=== PATIENT | female | born 2000 | race African-American/Black ===

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

== ENCOUNTER 2022-02-17 17:15 | Emergency (ER) | payer OTHER, SELFPAY ==
--- NOTE | 2022-02-17 18:21 | PC.NURSE ---
no answer for triage x2
== END 2022-02-17 18:33 | disposition left against medical advice (07) ==
PROVIDERS: PCP Pediatrics Adolescent Medicine
DX: Z53.21 Procedure and treatment not carried out due to patient leaving prior to being seen by health care provider (principal)
CPT/HCPCS: 99199

== ENCOUNTER 2023-05-24 20:29 | Emergency (ER) | payer SELFPAY ==
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
--- NOTE | ~2023-05-24 | CT_ITS ---
Non-contrast Head CT History: Syncope COMPARISON: 12/20/2020 Technique: Axial non-contrast imaging of the brain was performed. Dose reduction technique was used on this scan by utilizing automated exposure control and iterative reconstruction technique. The dose -length product (DLP) was 605.33 mGy-cm. Findings: There is no evidence of intracranial hemorrhage, mass lesion, or acute infarct. Brain par enchyma appears normal. The ventricles and subarachnoid spaces are normal in size. The calvarium ap pears normal. The visualized paranasal sinuses and mastoid air cells are clear. Impression: No significant abnormality seen. Reviewed, dictated and finalized at [facility]. [employer] SCHEDULE CLERK Impression: No significant abnormality seen.
[2023-05-24 20:50] VITALS: BP 110/62; PULSE 104; RESP 20; TEMP 36.6; O2SAT 97
[2023-05-24 22:56] VITALS: BP 102/64; PULSE 94; RESP 18; TEMP 36.2; O2SAT 100
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
[2023-05-24] MEDS: KETOROLAC 30 MG/ML VIAL (*BKC) IM (23:17)
--- NOTE | 2023-05-24 23:36 | PC.NURSE ---
this rn assumed care of patient. this rn took patient report from shannan avina.
--- NOTE | 2023-05-24 23:40 | PC.NURSE ---
this rn asked pt if she could provide a urine sample, to allow pt to obtain a ct scan. pt declined being able to provide a urine sample at this time. this rn educated pt on importance of needing urine sample. pt verbalized understanding. ct made aware.
--- NOTE | 2023-05-25 00:07 | PC.NURSE ---
this rn asked pt x2 to provide a urine sample. pt refused to provide urine sample. this rn educated pt on importance of providing urine sample for t scan. pt verbalized understanding. ARMANDO gamboa made aware.
--- NOTE | 2023-05-25 02:51 | PC.NURSE ---
pt used call light to notify this rn, that she would like to leave. Pt stated I cannot wait here all night for a scan, I have things to do today . This rn notified ARMANDO Infante about pt wanting to leave.
[2023-05-25 03:03] VITALS: BP 98/61; PULSE 78; RESP 20; O2SAT 100
== END 2023-05-25 03:00 | disposition home or self-care (01) ==
PROVIDERS: Emergency Provider Physician Assistant
DX: R51.9 Headache, unspecified (principal); S29.9XXA Unspecified injury of thorax, initial encounter; V43.52XA Car driver injured in collision with other type car in traffic accident, initial encounter
CPT/HCPCS: 70450; 71250; 81025; 96372; 99284; J1885

== ENCOUNTER 2023-10-23 22:22 | Emergency (ER) | payer SELFPAY ==
[2023-10-23 22:25] VITALS: BP 155/99; PULSE 81; RESP 18; TEMP 37.2; O2SAT 98
[2023-10-23 22:40] VITALS: BP 103/55; PULSE 60; RESP 16; O2SAT 98
--- NOTE | 2023-10-23 22:48 | ED.BACK ---
HPI - Back Pain/Injury General Chief Complaint: Back Pain/Injury Stated Complaint: flank pain and migraines Time Seen by Provider: 10/23/23 22:42 Source: patient Mode of arrival: ambulatory Limitations: no limitations History of Present Illness HPI Narrative: Marva is a 22-year-old female patient presenting to the ER today with complaints of bilateral flank pain, nausea, vomiting, body aches, chills, feeling feverish, and runny nose. She reports this has been going on for 4-5 days. States symptoms are gradually getting worse. noticed a little bit of blood in her vomit today. History of scoliosis. Denies any urinary symptoms. Patient has a Nexplanon in place and does not have regular periods Related Data Allergies Allergy/AdvReac Type Severity Reaction Status Date / Time iodine Allergy Rash Verified 10/23/23 22:24 Review of Systems Review of Systems: Pertinent positives per HPI. Patient denies any fever, chills, rash, headache, visual changes, dizziness, cough, runny nose, sore throat, shortness of breath, chest pain, palpitations, diarrhea, constipation, abdominal pain. PMFSH Past Medical History Medical History (Updated 10/24/23 @ 00:13 by Gautam Graves APRN) No active medical problems Surgical History Surgical History No pertinent past surgical history Family History Family History Mother No pertinent past medical history Social History Social History Smoking status: Never smoker Substance use: never Gender identity (if verbalized by the patient): Female Sexual Orientation (if Verbalized by the Patient): Straight or Heterosexual Spiritual care concerns: No Comments At the time of my signature, I reviewed and agree with the nursing past medical, surgical, social, and family history. There is no relevant family history pertinent to the patient complaint. Exam Narrative: General: Well-developed, well nourished, in no apparent distress Head: Normocephalic, atraumatic Eyes: Pupils equally round and reactive to light bilaterally, EOM intact, sclera and conjunctive clear, no discharge, lids normal Ears: TMs intact and clear, ear canals clear, no drainage, grossly hearing normal. Nose: Nares patent, no discharge, no inflammation, no sinus tenderness. Mouth: Oropharynx without lesions or masses, good dentition, MMM. Neck: Supple, trachea midline, no enlargement of anterior or posterior cervical nodes, no thyroid masses or goiter palpable. Cardio: Regular rate and rhythm, s1 and s2 normal, no murmur appreciated. Resp: Clear to auscultation bilaterally anteriorly and posteriorly, no rhonchi, rales, wheezing or rubs Abdomen: Soft, pliable, bowel sounds present in all quadrants, non-tender to palpation, no organomegly, positive bilateral CVAT tenderness. Course Course Emergency Course: Portions of this record may have been created with voice recognition software. Vital Signs Vital signs: Vital Signs Temperature 37.2 C 10/23/23 22:25 Pulse Rate 81 10/23/23 22:25 Respiratory Rate 18 10/23/23 22:25 Blood Pressure 155/99 H 10/23/23 22:25 Pulse Oximetry 98 10/23/23 22:25 Oxygen Delivery Room Air 10/23/23 22:25 Temperature 37.2 C 10/23/23 22:25 Pulse Rate 60 10/23/23 22:40 Respiratory Rate 16 10/23/23 22:40 Blood Pressure 103/55 L 10/23/23 22:40 Pulse Oximetry 98 10/23/23 22:40 Oxygen Delivery Room Air 10/23/23 22:25 Vital signs reviewed MDM - Back Pain/Injury MDM Narrative Medical decision making narrative: At the time of visit patient is resting comfortably on the exam table. Patient appears to be nontoxic. Labs: CBC is unremarkable, chemistry shows sodium 136, potassium 3.5, chloride 102, BUN of 6, creatinine 0.7, GFR is 95, GFR is greater than 60, g
[2023-10-23] MEDS: SODIUM CHLORIDE 0.9% IV 1,000 ML 999 ML IV CONT (23:20)
[2023-10-23 23:23] LABS: BEDSIDEPREGUCG Negative
[2023-10-23 23:27] LABS: Basophils Percent Auto 0.3 % (0.2-1.2); Eosinophils Absolute Auto 0.2 K/mm3 (0-0.3); Eosinophils Percent Auto 2.5 % (0-4.4); Hematocrit 41.4 % (37.0-47.0); Hemoglobin 13.6 g/dL (12.0-15.0); Immature Granulocyte Absolute 0.01 K/mm3 (0.00-0.031); Immature Granulocyte Percent A 0.1 % (0-0.5); Lymphocytes Absolute Auto 2.52 K/mm3 (0.9-3.2); Lymphocytes Percent Auto 36.8 % (18.3-44.2); Mean Corpuscular HGB Conc 32.9 g/dl (32-36); Mean Corpuscular Volume 85.4 fl (80-100); Mean Platelet Volume 8.6 fl (7.4-10.4); Monocytes Absolute Auto 0.4 K/mm3 (0.1-0.6); Monocytes Percent Auto 6.3 % (2.6-8.5); Neutrophils Absolute Auto 3.7 K/mm3 (1.3-6.7); Platelet Count Result 248 k/mm3 (150-375); Red Blood Count 4.85 M/mm3 (4.2-5.4); Red Cell Distribution Width 12.1 % (11.5-14.5); White Blood Count 6.8 K/mm3 (4.5-10.0)
[2023-10-23 23:32] LABS: Appearance Urine Cloudy (Clear); Bacteria Urine 4+ /hpf; Bilirubin Urine Negative (Negative); Blood Urine Negative (Negative); Color Urine Yellow (Yellow); Glucose Urine UA Negative (Negative); Ketones Urine Trace mg/dL (Negative); Leukocyte Esterase Ur 1+ LEU/UL (Negative); Nitrate Urine Negative (Negative); Non Pathogenic Casts 0-2; Protein Urine Negative (Negative); RBC Urine 0-2 /hpf (0-2); Specific Grav Ur 1.024 (1.001-1.035); Squamous Epithelial Cell Urine Many /hpf (Few); pH Urine 5.5 (5.0-9.0)
[2023-10-23 23:33] LABS: Add Urine Microscopic? YES
[2023-10-23 23:37] LABS: Albumin Level 3.9 g/dL (3.5-5.1); Alkaline Phosphatase 65 U/L (38-126); Anion Gap 8 mmol/L (4-12); Aspartate Amino Transferase 18 U/L (14-36); Bilirubin,Total 0.3 mg/dL (0.2-1.3); Blood Urea Nitrogen 6 mg/dL (7-17); Calcium 8.7 mg/dL (8.4-10.2); Carbon Dioxide 26 mmol/L (22-30); Chloride 102 mmol/L (98-107); Estimated CRCL calculation 95 ml/min; Estimated Glomerular Filt Rate > 60; Glucose 85 mg/dL (65-110); Lipase 35 U/L (23-300); Potassium 3.5 mmol/L (3.4-5.0); Sodium 136 mmol/L (137-145)
[2023-10-24 00:06] LABS: Influenza A QL RT-PCR Negative (Negative); Influenza B QL RT-PCR Negative (Negative); RSV RNA, RT-PCR Negative (Negative); SARS-CoV-2 RNA PCR Negative (Negative)
[2023-10-24 00:16] LABS: Alanine Aminotransferase < 6 U/L (6-35)
[2023-10-24] MEDS: SULFAMETHOXAZOLE/TRIMETHOPRIM 800/160 MG DS TABLET 1 TAB PO (00:21)
== END 2023-10-24 00:27 | disposition home or self-care (01) ==
PROVIDERS: Emergency Provider Nurse Practitioner Family
DX: N30.00 Acute cystitis without hematuria (principal); K29.00 Acute gastritis without bleeding; Z20.822 Contact with and (suspected) exposure to COVID-19
CPT/HCPCS: 36415; 80053; 81001; 81025; 83690; 85025; 87086; 87637; 96360; 99283; A9270; J7030

== ENCOUNTER 2024-07-01 19:29 | Emergency (ER) | payer OTHER, SELFPAY ==
--- OUTSIDE RECORDS SUMMARY | 2024-07-01 19:31 | XMS_ITS | Referral Summary ---
Author Organization [facility] o[facility] Address [address] [place] [address] Care Team Providers Care Data Processor Name Role Phone Joanne Perez MD Primary Care Provider [phone] Encounters Date Type Department Care Team Description 05/20/2024 8:30 AM BATTERY SERVICE TECHNICIAN Office Visit [facility]ient Care at [address] [address] Brittni Lujan PA Rash (Primary Dx) from Last 3 Months Allergies No known active allergies Medications predniSONE (DELTASONE) 10 mg tablet Take 5 tabs (50mg) daily for 2 days, then take 4 tabs (40mg) daily for 2 days. Continue to decrease by 1 tab (10mg) every 2 days until gone. 30 tablet 05/20/2024 Active Active Problems Problem Noted Date Diagnosed Date Scoliosis 05/13/2016 Social History Tobacco Use Types Packs/Day Years Used Date Smoking Tobacco: Never Assessed Comments Unknown Sex and Gender Information Value Date Recorded Sex Assigned at Not on file Legal Sex Female 2:48 AM BATTERY SERVICE TECHNICIAN Gender Identity Not on file Sexual Orientation Not on file Last Filed Vital Signs Vital Sign Reading Time Taken Comments Blood Pressure 116/72 05/20/2024 8:46 AM BATTERY SERVICE TECHNICIAN Pulse 70 05/20/2024 8:46 AM BATTERY SERVICE TECHNICIAN Temperature 37.2 C (98.9 F) 05/20/2024 8:46 AM BATTERY SERVICE TECHNICIAN Respiratory Rate 20 05/20/2024 8:46 AM BATTERY SERVICE TECHNICIAN Oxygen Saturation 98% 05/20/2024 8:46 AM BATTERY SERVICE TECHNICIAN Inhaled Oxygen Concentration - - Weight 52.3 kg (115 lb 6.4 oz) 05/20/2024 8:46 A M BATTERY SERVICE TECHNICIAN Height - - Body Mass Index - - Plan of Treatment Not on file Insurance [facility] CMR Care Teams Data Processor Relationship Specialty Start Date End Date Joanne Perez MD PCP - General Pediatrics 06/07/20
--- OUTSIDE RECORDS SUMMARY | 2024-07-01 19:31 | XMS_ITS | Clinical Summary ---
Author Organization [facility] ospital Address [address] [place] [address] Care Team Providers Care National Van Truck Driver Name Role Phone Joanne Perez MD Primary Care Provider [phone] Allergies No known active allergies Medications predniSONE (DELTASONE) 10 mg tablet Take 5 tabs (50mg) daily for 2 days, then take 4 tabs (40mg) daily for 2 days. Continue to decrease by 1 tab (10mg) every 2 days until gone. 30 tablet 05/20/2024 Active Active Problems Problem Noted Date Diagnosed Date Scoliosis 05/13/2016 Encounters Date Type Department Care Team Description 05/20/2024 8:30 AM DIGITAL HARDWARE DESIGN ENGINEER Office Visit [facility] Medical [facility] Convenient Care at [address] [address] Brittni Lujan PA Rash (Primary Dx) from Last 3 Months Family History Medical History Relation Name Comments [place] legs Maternal Grandfather Helena - Relation: Grandfather (Added by TW Conv) Diabetes Other Family history of diabetes mellitus - Relation: Grandmother (Added by TW Conv) Scoliosis Other Family history of scoliosis - Relation: Aunt (Added by TW Conv) Relation Name Status Comments Maternal Grandfather Other Social History Tobacco Use Types Packs/Day Years Used Date Smoking Tobacco: Never Assessed Comments Unknown Sex and Gender Information Value Date Recorded Sex Assigned at Not on file Legal Sex Female 2:48 AM DIGITAL HARDWARE DESIGN ENGINEER Gender Identity Not on file Sexual Orientation Not on file Obstetrics History Last Filed Vital Signs Vital Sign Reading Time Taken Comments Blood Pressure 116/72 05/20/2024 8:46 AM DIGITAL HARDWARE DESIGN ENGINEER Pulse 70 05/20/2024 8:46 AM DIGITAL HARDWARE DESIGN ENGINEER Temperature 37.2 C (98.9 F) 05/20/2024 8:46 AM DIGITAL HARDWARE DESIGN ENGINEER Respiratory Rate 20 05/20/2024 8:46 AM DIGITAL HARDWARE DESIGN ENGINEER Oxygen Saturation 98% 05/20/2024 8:46 AM DIGITAL HARDWARE DESIGN ENGINEER Inhaled Oxygen Concentration - - Weight 52.3 kg (115 lb 6.4 oz) 05/20/2024 8:46 A M DIGITAL HARDWARE DESIGN ENGINEER Height - - Body Mass Index - - Plan of Treatment Health Maintenance Due Date Last Done Comments Cervical Cancer Screening 2002 Depression Screening 2002 Hepatitis C Screening 2002 Regular Well Visit/Exam 18-64 2020 Meningococcal B Vaccine (2 o f 2 - Trumenba SCDM 2-dose series) 10/26/2021 04/28/2021, 03/15/2020, 01/25/2019 Covid-19 Vaccine (2023-2 5 season) 2023 07/17/2020, 06/26/2020 Influenza Vaccine (#1) 2023 12/22/2019, 2011 DTaP/Tdap/Td Vaccine (7 - Td or Tdap) 11/11/2024 11/11/2014, 09/21/2007, 12/31/2003, Additional history exists Hepatitis B Screening Completed 06/26/2003 , 01/31/2003, 2002 Pneumococcal vaccine <65 Completed 005, 06/26/2003, 04/15/2003, Additional history exists Varicella Vaccines Completed 09/21/2007, 12/31/2003 HPV Vaccines Completed 11/11/2014, 11/26, 01/25/2012 Meningococcal Vaccine Completed 01/25/2019, 015 Insurance [facility] Care Teams National Van Truck Driver Relationship Specialty Start Date End Date Joanne Perez MD PCP - General Pediatrics 06/07/20
--- OUTSIDE RECORDS SUMMARY | 2024-07-01 19:31 | XMS_ITS | Clinical Summary ---
Author Organization [facility] Address [address] [place] [address] Care Team Providers Care [place] Worker Supervisor Name Role Phone Unavailable Primary Care Provider Unavailabl e Source Comments [facility],non-owned Affiliates and Associated Physician Practices is amultiple site organization consisting of ambulatory clinics and hospital sitesin [place], [place], [place] and [place]. This disclosure is being madepursuant to the Care Everywhere program and may not contain all information available regarding this patient. Last updated 17.[facility] Social History Tobacco Use Types Packs/Day Years Used Date Smoking Tobacco: Never Assessed Sex and Gender Information Value Date Recorded Sex Assigned at Not on file Gender Identity Not on file Sexual Orientation Not on file Plan of Treatment Health Maintenance Due Date Last Done Comments PAP SMEAR 2002 HIV SCREENING 2017 HPV VACCINE (1 - 3-dose series) 2017 CHLAMYDIA/GONORRHEA SCREENING 2018 MENINGOCOCCAL (Group B) VACC INE SHARED DECISION-MAKING (1 of 2 - Standard) 2018 HEPATITIS C SCREENING 10/25/2020 DTAP/TDAP/TD VACCINES (1 - Tdap) 2021 HEPATITIS B VACCINE (1 of 3 - 19+ 3-dose series) 2021 COVID-19 VACCINE (1 - 2023-2 5 season) 2023 DEPRESSION SCREENING 03/28/2024 INFLUENZA VACCINE (Season Ended) 2024 ZOSTER VACCINE (1 of 2) 2052 HIB VACCINE Aged Out No longer eligi ble based on patient's age to complete this topic MENINGOCOCCAL GROUPS A/C/Y/W VACCINE Aged Out No longer eligible b ased on patient's age to complete this topic PNEUMOCOCCAL VACCINE Aged Out No long er eligible based on patient's age to complete this topic
[2024-07-01 19:32] VITALS: BP 103/61; PULSE 114; RESP 18; TEMP 36.3; O2SAT 98
--- OUTSIDE RECORDS SUMMARY | 2024-07-01 20:13 | XMS_ITS | Clinical Summary ---
Author Organization [facility] Address [address] [place] [address] Care Team Providers Care Can Dragger Name Role Phone Unavailable Primary Care Provider Unavailabl e Source Comments [facility],non-owned Affiliates and Associated Physician Practices is amultiple site organization consisting of ambulatory clinics and hospital sitesin [place], [place], [place] and [place]. This disclosure is being madepursuant to the Care Everywhere program and may not contain all information available regarding this patient. Last updated 17.[facility] Social History Tobacco Use Types Packs/Day Years [...]
--- OUTSIDE RECORDS SUMMARY | 2024-07-01 20:13 | XMS_ITS | Clinical Summary ---
Author Organization [facility] ospital Address [address] [place] [address] Care Team Providers Care Baker Pastry Name Role Phone Joanne Perez MD Primary Care Provider [phone] Allergies No known active allergies Medications predniSONE (DELTASONE) 10 mg tablet Take 5 tabs (50mg) daily for 2 days, then take 4 tabs (40mg) daily for 2 days. Continue to decrease by 1 tab (10mg) every 2 days until gone. 30 tablet 05/20/2024 Active Active Problems Problem Noted Date Diagnosed Date Scoliosis 05/13/2016 Encounters Date Type Department Care Team Description 05/20/2024 8:30 AM PICK OUT HAND Office Visit [facility] Medical Group Convenient Care at [address] [address] Brittni Lujan PA Rash (Primary Dx) from Last 3 Months Family History Medical History Relation Name Comments [place] legs Maternal Grandfather [place] - Relation: Grandfather (Added by TW Conv) [...] on file Legal Sex Female 2:48 AM PICK OUT HAND Gender Identity Not on file Sexual Orientation Not on file Obstetrics History Last Filed Vital Signs Vital Sign Reading Time Taken Comments Blood Pressure 116/72 05/20/2024 8:46 AM PICK OUT HAND Pulse 70 05/20/2024 8:46 AM PICK OUT HAND Temperature 37.2 C (98.9 F) 05/20/2024 8:46 AM PICK OUT HAND Respiratory Rate 20 05/20/2024 8:46 AM PICK OUT HAND Oxygen Saturation 98% 05/20/2024 8:46 AM PICK OUT HAND Inhaled Oxygen Concentration - - Weight 52.3 kg (115 lb 6.4 oz) 05/20/2024 8:46 A M PICK OUT HAND Height - - Body Mass Index - [...] 01/25/2012 Meningococcal Vaccine Completed 01/25/2019, 015 Insurance [facility] Care Teams Baker Pastry Relationship Specialty Start Date End Date Joanne Perez MD PCP - General Pediatrics 06/07/20
--- OUTSIDE RECORDS SUMMARY | 2024-07-01 20:13 | XMS_ITS | Referral Summary ---
Author Organization [facility] o[facility] Address [address] [place] [address] Care Team Providers Care Fuel Yard Operator Name Role Phone Joanne Perez MD Primary Care Provider [phone] Encounters Date Type Department Care Team Description 05/20/2024 8:30 AM DISCHARGE RN Office Visit [facility] Medical Group Convenient Care at [address] [address] Brittni Lujan PA Rash (Primary [...] on file Legal Sex Female 2:48 AM DISCHARGE RN Gender Identity Not on file Sexual Orientation Not on file Last Filed Vital Signs Vital Sign Reading Time Taken Comments Blood Pressure 116/72 05/20/2024 8:46 AM DISCHARGE RN Pulse 70 05/20/2024 8:46 AM DISCHARGE RN Temperature 37.2 C (98.9 F) 05/20/2024 8:46 AM DISCHARGE RN Respiratory Rate 20 05/20/2024 8:46 AM DISCHARGE RN Oxygen Saturation 98% 05/20/2024 8:46 AM DISCHARGE RN Inhaled Oxygen Concentration - - Weight 52.3 kg (115 lb 6.4 oz) 05/20/2024 8:46 A M DISCHARGE RN Height - - Body Mass Index - - Plan of Treatment Not on file Insurance [facility] CMR Care Teams Fuel Yard Operator Relationship Specialty Start Date End Date Joanne Perez MD PCP - General Pediatrics 06/07/20
[2024-07-01 20:25] LABS: Add Urine Microscopic? YES; Appearance Urine Turbid (Clear); Bacteria Urine 3+ /hpf; Bilirubin Urine Negative (Negative); Blood Urine Trace (Negative); Color Urine Yellow (Yellow); Glucose Urine UA Negative (Negative); Ketones Urine 1+ mg/dL (Negative); Leukocyte Esterase Ur Negative LEU/UL (Negative); Need Manual Microscopic Reviewed; Nitrate Urine Negative (Negative); Protein Urine Trace mg/dL (Negative); Specific Grav Ur 1.033 (1.001-1.035); Squamous Epithelial Cell Urine Moderate /hpf (Few)
--- NOTE | 2024-07-01 20:30 | ED.NAVMDI ---
HPI - Nausea/Vomiting/Diarrhea General Chief complaint: Nausea/Vomiting/Diarrhea Stated complaint: vomiting Time Seen by Provider: 07/01/24 19:44 Source: patient Mode of arrival: ambulatory Limitations: no limitations History of Present Illness HPI Narrative: Patient presents with N/V/D. Emesis has been NBNB and diarrhea started this morning. She also has right upper quadrant/epigastric abdominal pain which she states feels like period cramps and then will intermittnetly be sharp. She does not know if it radiates. She has been having chills and hot flashes. She was able to keep Gatorade down but felt nauseated. Her mom got her worried that she might have food poisoning. LMP 3 weeks ago, normal. Uses MJ nearly daily. No constipation or bloody stool. When asked if she has recently been on antibiotics she states she was on a steroid and an antiinflammatory (?). No abdominal surgeries. Traveled to [place] but no other travel. No sick contacts. Denies dysuria hematuria but has been having urgency and frequency. Her PCP used to be Maria Elena, will now be Dr Hill. Related Data Allergies Allergy/AdvReac Type Severity Reaction Status Date / Time iodine Allergy Rash Verified 07/01/24 19:30 [facility] Past Medical History Medical History No active medical problems Surgical History Surgical History No pertinent past surgical history Family History Family History Mother No pertinent past medical history Social History Social History (Updated 07/02/24 @ 21:14 by Paola Lucero MD) Social History: Single Smoking status: Never smoker Tobacco type: e-cigarettes/vaping Second hand tobacco smoke exposure: No Alcohol intake: current Alcohol use details: Rarely Substance use: current Substance use type: marijuana Other substance usage details: near daily Do You Feel Safe in your Home?: Yes Lack of Transportation: No Lack of Food: Never True Current Housing: I Have Housing Concerned About Future Housing: No Difficulty Paying Gas/Electric Bills: No Difficulty Paying for Meds: No Currently Unemployed: No Education: High School Diploma/GED Difficulty w/ Childcare or Family Care: No Living arrangements: with family Occupation/Education: occupation Additional occupation/education comments: daycare Gender identity (if verbalized by the patient): Female Sexual Orientation (if Verbalized by the Patient): Straight or Heterosexual Spiritual care concerns: No Exam Narrative: GENERAL: Well-appearing, well-nourished, and in no acute distress. HEAD: Normocephalic, atraumatic. EYES: Non injected, non icteric ENT: Nares clear, no rhinorrhea or epistaxis. Moist mucous membranes NECK: Supple. CHEST: Speaking in full sentences. No respiratory distress. HEART: Regular rate and rhythm. . ABDOMEN: Soft, nondistended. No tenderness palpation throughout. No rigidity or guarding. Not peritoneal. Narayan sign negative. EXTREMITIES: Normal range of motion. No lower extremity edema. SKIN: Warm, dry, no rash. NEURO: No focal deficits. Alert and oriented x3. PSYCH: Normal mood and affect. Course Vital Signs Vital signs: Vital Signs Temperature 97.4 F L 07/01/24 19:32 Pulse Rate 114 H 07/01/24 19:32 Respiratory Rate 18 07/01/24 19:32 Blood Pressure 103/61 07/01/24 19:32 Pulse Oximetry 98 07/01/24 19:32 Oxygen Delivery Room Air 07/01/24 19:32 Temperature 97.4 F L 07/01/24 19:32 Pulse Rate 72 07/01/24 23:06 Respiratory Rate 16 07/01/24 23:06 Blood Pressure 112/63 07/01/24 23:06 Pulse Oximetry 100 07/01/24 23:06 Oxygen Delivery Room Air 07/01/24 19:32 MDM - Nausea/Vomiting/Diarrhea MDM Narrative Medical decision making narrative: Patient presents with N/V/D that started this morning and is associated with epigsatric/RUQ abdominal pain. In the emergency department she is afebrile with vital signs notable for tachycardia. The differential for acute ( less than 14d) diarrhea includes infectious etiologies (viral, preformed toxins, toxins formed after colonization, invasive bacteria, and parasites), medications, inflammatory causes (IBD, radiation enteritis, ischemic colitis, diverticulitis), malabsorption, secretory causes, or motility disorders. test negative. Urinalysis equivocal for urinary tract infection given there is bacteria but also moderate squamous cells. Patient has been reporting symptoms of urinary urgency and frequency in for this reason we will treat. Previous urine cultures were negative. Also requested urine culture be reflexed; lab acknowledged. Patient given 500 cc IV fluids for tachycardia. Zofran ordered. Will defer any imaging at this time given benign abdominal exam. Lipase normal. Patient does have a significant leukocytosis, possible contraction versus stress reaction. Patient is reassessed at 10:20 p.m.. She states her pain and nausea are improved. The only pain she is experiencing is at her IV site. She states she tried to go to the bathroom to give a stool sample but was unable to. Given this, even lower suspicion for C difficile. Patient does note at this time that at 1 point she was diagnosed with gastritis and given a prescription for short course of omeprazole and this seemed to help a little bit although she does note that she has to be more mindful of what she eats. She has a primary care physician. Will get a dose of famotidine and then be prescribed short course of omeprazole as well as a few tablets of oral disintegrating Zofran. We discussed that she had a leukocytosis but the likely suspicion of the cause of this and that her abdominal exam was otherwise benign. She is in agreement with deferring advanced imaging. She is stable and amenable with discharge. 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 Differential Diagnosis Differential diagnosis: Likely food poisoning, gastroenteritis, clostridium difficile infection, drug-induced nausea and vomiting, dehydration and other (; gastritis, GERD biliary etiology, cannabinoid hyperemesis) Lab Data Attestation: I reviewed the patient's lab results. 07/01/24 20:42 07/01/24 20:42 Labs: Lab Results 07/01/24 07/01/24 07/01/24 Range/Units 20:03 20:30 20:42 WBC 16.2 H (4.5-10.0) K/mm3 RBC 5.41 H (4.2-5.4) M/mm3 Hgb 14.2 (12.0-15.0) g/dL Hct 46.6 (37.0-47.0) % MCV 86.1 (80-100) fl MCH 26.2 (26-34) pg MCHC 30.5 L (32-36) g/dl RDW 13.4 (11.5-14.5) % Plt Count 331 (150-375) k/mm3 MPV 8.9 (7.4-10.4) fl Immature Gran % (Auto) 0.4 (0-0.5) % Neut % (Auto) 92.2 H (45.5-73.1) % Lymph % (Auto) 4.0 L (18.3-44.2) % Sp[place]ding % (Auto) 3.1 (2.6-8.5) % Eos % (Auto) 0.2 (0-4.4) % Baso % (Auto) 0.1 L (0.2-1.2) % Lymph # (Auto) 0.65 L (0.9-3.2) K/mm3 [place]ding # (Auto) 0.5 (0.1-0.6) K/mm3 Eos # (Auto) 0.0 (0-0.3) K/mm3 Baso # (Auto) 0.0 (0.0-0.1) K/mm3 Abs Immat Gran (auto) 0.07 H (0.00-0.031) K/mm3 Absolute Neuts (auto) 14.9 H (1.3-6.7) K/mm3 Absolute Nucleated RBC 0.000 (0.0-0.012) K/mm3 Nucleated RBC % 0.0 (0.0-0.2) % Sodium 136 L (137-145) mmol/L Potassium 4.1 (3.4-5.0) mmol/L Chloride 102 (98-107) mmol/L Carbon Dioxide 25 (22-30) mmol/L Anion Gap 9 (4-12) mmol/L BUN 10 (7-17) mg/dL Creatinine 0.72 (0.7-1.0) mg/dL Estim Creat Clear Calc 88 ml/min Estimated GFR > 60 (59 - ) Glucose 85 (65-110) mg/dL Calcium 9.0 (8.4-10.2) mg/dL Magnesium 1.9 (1.6-2.3) mg/dL Total Bilirubin 1.0 (0.2-1.3) mg/dL AST 24 (14-36) U/L ALT 10 (6-35) U/L Alkaline Phosphatase 85 (38-126) U/L Total Protein 8.0 (6.3-8.2) g/dL Albumin 4.2 (3.5-5.1) g/dL Lipase 52 (23-300) U/L Urine Color Yellow (Yellow) Urine Appearance Turbid H (Clear) Urine pH 5.0 (5.0-9.0) Ur Specific [place] 1.033 (1.001-1.035) Urine Protein Trace (Negative) mg/dL Urine Glucose (UA) Negative (Negative) mg/dL Urine Ketones 1+ H (Negative) mg/dL Ur Blood (Man) Trace (Negative) Urine Nitrate Negative (Negative) Urine Bilirubin Negative (Negative) Urine Urobilinogen 1.0 (<2.0) mg/dL Add Ur Microanalysis Reviewed Leukocyte Esterase Rfl Negative (Negative) MELINDA/UL Urine RBC 6-10 H (0-2) /hpf Urine WBC 11-20 H (0-3) /hpf Ur Squamous Epith Cells Moderate (Few) /hpf Urine Bacteria 3+ H /hpf Urine Casts 3-5 POC Urine HCG, Qual Negative (Negative) Urine Test Negative Influenza A (RT-PCR) Negative (Negative) Influenza B (RT-PCR) Negative (Negative) RSV (RT-PCR) Negative (Negative) SARS-CoV-2 RNA (RT-PCR) Negative (Negative) Discharge Plan Discharge Clinical Impression: UTI (urinary tract infection), Gastroenteritis, Leukocytosis, Epigastric abdominal pain Patient Disposition: Home Condition: Stable Instructions: Antibiotic Form, Gastritis (DC), Urinary Tract Infection in Women (DC), Gastroenteritis (DC), Leukocytosis (ED), Epigastric Pain (ED) Additional Instructions: As we discussed, this likely represents gastroenteritis versus gastritis. Gastroenteritis tends to be viral although you tested negative for COVID, influenza a, influenza B. You were given fluids and medication and were feeling better. You are being prescribed short course of medication that suppresses the acid in her stomach and then also use the oral disintegrating tablets of Zofran for nausea or vomiting. Rest and maintain your hydration. Start gently with clear liquids and advance as tolerated. You can supplement with Pedialyte or Gatorade (does not have to be name brand) although this is not necessary as you had no electrolyte abnormalities. Because you had issues with gastritis and GI issues before, follow-up with primary care physician. Avoid taking Immodium unless absolutely necessary as this needs to run its course. Return to the Emergency Department immediately if the pain worsens, develops fever, persistent and uncontrollable vomiting, or for any new symptoms or concerns. Your urine was concern for possible tract infection given you were having symptoms we are treating. You received the 1st dose of antibiotic emergency department rest course prescribed. Patient Language: Yi Prescriptions: New ondansetron 4 mg tablet,disintegrating 4 mg PO Q8H PRN (Reason: nausea and vomiting) Qty: 7 0RF omeprazole 20 mg tablet,delayed release (DR/EC) 20 mg PO DAILY Qty: 14 0RF sulfamethoxazole-trimethoprim [Bactrim DS] 800-160 mg tablet 1 tablet PO Q12H 5 Days Qty: 9 0RF Rx Instructions: start 07/02/24 (received first dose 07/01) No Action prednisone 10 mg tablet 10 mg PO DAILY Qty: 30 0RF Rx Instructions: Take PO 4 tabs daily x3 days, 3 tabs daily x3 days, 2 tabs daily x3 days, 1 tab daily x3 days dextroamphetamine-amphetamine [Adderall XR] 10 mg capsule,extended release 24hr 10 mg PO QAM Qty: 30 0RF Follow-up/Referrals: Dejuan Hill MD [Primary Care Provider] - Stand Alone Forms: Work/School Release IP Time of Disposition: 22:29
[2024-07-01 20:32] LABS: BEDSIDEPREGUCG Negative (Negative)
[2024-07-01 20:40] LABS: Pregnancy On Board Control Positive; Urine Pregnancy Test Negative
[2024-07-01 20:42] VITALS: BP 111/67; O2SAT 100
[2024-07-01 20:50] LABS: Basophils Percent Auto 0.1 % (0.2-1.2); Eosinophils Percent Auto 0.2 % (0-4.4); Hematocrit 46.6 % (37.0-47.0); Hemoglobin 14.2 g/dL (12.0-15.0); Immature Granulocyte Absolute 0.07 K/mm3 (0.00-0.031); Immature Granulocyte Percent A 0.4 % (0-0.5); Lymphocytes Absolute Auto 0.65 K/mm3 (0.9-3.2); Mean Corpuscular HGB Conc 30.5 g/dl (32-36); Mean Corpuscular Hemoglobin 26.2 pg (26-34); Mean Corpuscular Volume 86.1 fl (80-100); Mean Platelet Volume 8.9 fl (7.4-10.4); Monocytes Absolute Auto 0.5 K/mm3 (0.1-0.6); Monocytes Percent Auto 3.1 % (2.6-8.5); Neutrophils Absolute Auto 14.9 K/mm3 (1.3-6.7); Neutrophils Percent Auto 92.2 % (45.5-73.1); Platelet Count Result 331 k/mm3 (150-375); Red Blood Count 5.41 M/mm3 (4.2-5.4); Red Cell Distribution Width 13.4 % (11.5-14.5); White Blood Count 16.2 K/mm3 (4.5-10.0)
[2024-07-01] MEDS: SODIUM CHLORIDE 0.9% IV 500 ML 999 ML IV CONT (20:51)
[2024-07-01] MEDS: ONDANSETRON INJ 4 MG/2 ML VIAL IV PUSH (20:53)
[2024-07-01 21:00] VITALS: BP 107/66; O2SAT 99
[2024-07-01 21:03] LABS: Magnesium 1.9 mg/dL (1.6-2.3)
[2024-07-01 21:04] LABS: Alanine Aminotransferase 10 U/L (6-35); Albumin Level 4.2 g/dL (3.5-5.1); Alkaline Phosphatase 85 U/L (38-126); Anion Gap 9 mmol/L (4-12); Aspartate Amino Transferase 24 U/L (14-36); Blood Urea Nitrogen 10 mg/dL (7-17); Carbon Dioxide 25 mmol/L (22-30); Chloride 102 mmol/L (98-107); Estimated CRCL calculation 88 ml/min; Estimated Glomerular Filt Rate > 60; Glucose 85 mg/dL (65-110); Lipase 52 U/L (23-300); Potassium 4.1 mmol/L (3.4-5.0); Sodium 136 mmol/L (137-145)
--- NOTE | 2024-07-01 21:08 | PC.NURSE ---
Pt provided with hat to collect stool sample. At this time pt is unable to provide sample.
[2024-07-01 21:26] LABS: Influenza A QL RT-PCR Negative (Negative); Influenza B QL RT-PCR Negative (Negative); RSV RNA, RT-PCR Negative (Negative); SARS-CoV-2 RNA PCR Negative (Negative)
--- NOTE | 2024-07-01 21:51 | PC.NURSE ---
Pt attempted to give a stool specimen. Pt unable to at this time.
[2024-07-01] MEDS: FAMOTIDINE 20 MG/2 ML VIAL IV PUSH (22:32)
[2024-07-01] MEDS: SULFAMETHOXAZOLE/TRIMETHOPRIM 800/160 MG DS TABLET 1 TAB PO (22:32)
[2024-07-01 22:38] VITALS: BP 112/63; PULSE 61; RESP 14; O2SAT 100
[2024-07-01 23:06] VITALS: BP 112/63; PULSE 72; RESP 16; O2SAT 100
== END 2024-07-01 23:09 | disposition home or self-care (01) ==
PROVIDERS: Emergency Provider Student in an Organized Health Care Education/Training Program; PCP Family Medicine
DX: K52.9 Noninfective gastroenteritis and colitis, unspecified (principal); N39.0 Urinary tract infection, site not specified; D72.829 Elevated white blood cell count, unspecified; Z20.822 Contact with and (suspected) exposure to COVID-19
CPT/HCPCS: 36415; 80053; 81001; 81025; 83690; 83735; 85025; 87086; 87637; 96361; 96374; 96375; 99284; A9270; J2405; J7040